=== PATIENT | male | born 1990 | race Caucasian/White ===

== ENCOUNTER 2018-11-16 09:12 | Emergency (ER) | payer BC ==
[~2018-11-16] VITALS: Ht 165.1 cm; Wt 93.7 kg
[2018-11-16 09:17] VITALS: BP 155/87; PULSE 63; RESP 17; Ht 165.1 cm; Wt 93.7 kg
== END 2018-11-16 10:34 | disposition home or self-care (01) ==
LOC: FTE 09:12
DX: R00.2 Palpitations (principal)
CPT/HCPCS: 93005

== ENCOUNTER 2018-12-14 13:29 | Emergency (ER) | payer BC ==
[~2018-12-14] VITALS: Ht 165.1 cm; Wt 91.1 kg
[~2018-12-14 13:29] MED LIST: LORA-441 PO
[2018-12-14 13:43] VITALS: BP 136/80; PULSE 70; RESP 18; Ht 165.1 cm; Wt 91.1 kg
== END 2018-12-14 14:57 | disposition home or self-care (01) ==
LOC: FTE 13:29
DX: R00.2 Palpitations (principal); F41.9 Anxiety disorder, unspecified
CPT/HCPCS: 71046; 93005